=== PATIENT | male | born 1960 | race African-American/Black ===

== ENCOUNTER 2019-06-04 23:41 | Emergency (ER) | payer OTHER ==
[~2019-06-04] VITALS: Ht 188 cm; Wt 127.3 kg
[2019-06-05] MEDS ORDERED: BUPR100 PO (01:25)
[2019-06-05] MEDS ORDERED: MELA5TAB3 PO (01:25)
[2019-06-05] MEDS ORDERED: LOSA50TA64 PO (01:25)
[2019-06-05 01:47] LABS: AMPHET/METH SCREEN,URINE NEGATIVE (NEGATIVE); BARBITURATE SCREEN, URINE NEGATIVE (NEGATIVE); BENZODIAZEPINES SCREEN,URINE NEGATIVE (NEGATIVE); CANNABINOID SCREEN,URINE NEGATIVE (NEGATIVE); COCAINE SCREEN,URINE NEGATIVE (NEGATIVE); METHADONE SCREEN, URINE NEGATIVE (NEGATIVE); OPIATE SCREEN,URINE NEGATIVE (NEGATIVE); PHENCYCLIDINE SCREEN,URINE NEGATIVE (NEGATIVE)
[2019-06-05 03:04] VITALS: BP 138/72
== END 2019-06-05 03:08 | disposition home or self-care (01) ==
LOC: EMS 23:44
DX: F19.11 Other psychoactive substance abuse, in remission (principal); F17.210 Nicotine dependence, cigarettes, uncomplicated; F11.90 Opioid use, unspecified, uncomplicated; Z79.899 Other long term (current) drug therapy